=== PATIENT | male | born 1945 | race Caucasian/White ===

== ENCOUNTER 2017-10-05 20:07 | Inpatient (IN) | payer OTHER ==
[~2017-10-05] VITALS: Ht 182.9 cm; Wt 101.6 kg
--- NOTE | 2017-10-05 20:12 | ED GENERAL ADULT ---
History of Present Illness General Chief Complaint: General Adult Stated Complaint: BIBA WEAKNESS Source: patient, EMS Exam Limitations: no limitations Vital Signs & Intake/Output Vital Signs & Intake/Output Vital Signs Date Time Temp Pulse Resp B/P B/P Pulse O2 O2 Flow FiO2 Mean Ox Delivery Rate 10/06 46 98.6 84 18 123/60 98 Nasal 2.0L Cannula 10/05 2229 98.9 90 18 138/84 99 Room Air 10/05 2121 101.5 103 18 130/59 99 Room Air 10/06 2027 97 Nasal 2.0L Cannula 10/05 2014 99.6 118 18 145/66 93 Nasal 2.0L Cannula 10/05 2009 100.5 118 22 88 Room Air ED Intake and Output 10/06 0000 10/05 1200 Intake Total 3000 Output Total 100 Balance 2900 Intake, IV 3000 Output, Urine 100 Patient 214 lb Weight Weight Reported by Patient Measurement Method Allergies Coded Allergies: No Known Allergies (10/05/17) Reconcile Medications Glipizide 5 MG TABLET 1 TAB PO BID Diabetes (Reported) Lisinopril 10 MG TABLET 1 TAB PO DAILY HTN (Reported) Metformin HCl (Glucophage XR) 500 MG TAB.ER.24H DIABETES (Reported) Simvastatin (Simvastatin*) 80 MG TABLET 0.5 TAB PO DAILY HLD (Reported) Triage Nurses Notes Reviewed? yes Onset: Gradual Duration: day(s): Timing: recent history Injury Environment: home Severity: moderate Modifying Factors: Improves With: rest. Associated Symptoms: dysuria HPI: 72-year-old gentleman history of diabetes presents with weakness 1 day. He states that he has spent all day in bed. He has felt warm. He has increased urination with burning, as well as muscle aches. He notes no nausea vomiting diarrhea chest pain shortness of breath cough sinus congestion or ear pain. 911 was called. His glucose in the field was in the mid 200s. His other vitals were stable. He is otherwise well. Past History Travel History Traveled to [place] past 21 day No Medical History Any Pertinent Medical History? see below for history Endocrine: diabetes Surgical History Surgical History: non-contributory Psychosocial History What is your primary language [place] Family History Hx Contributory? No Review of Systems Review of Systems Constitutional: Reports: no symptoms. EENTM: Reports: no symptoms. Respiratory: Reports: no symptoms. Cardiovascular: Reports: no symptoms. GI: Reports: no symptoms. Genitourinary: Reports: no symptoms. Musculoskeletal: Reports: no symptoms. Skin: Reports: no symptoms. Neurological/Psychological: Reports: no symptoms. Hematologic/Endocrine: Reports: no symptoms. Immunologic/Allergic: Reports: no symptoms. All Other Systems: Reviewed and Negative Physical Exam Physical Exam General Appearance: mild distress Comments: Review of Systems - except as otherwise noted in HPI Review of Systems Constitutional:no symptoms. EENTM:no symptoms. Respiratory:no symptoms. Cardiovascular:no symptoms. GI:no symptoms. Genitourinary:no symptoms. Musculoskeletal:no symptoms. Skin:no symptoms. Neurological/Psychological:no symptoms. Hematologic/Endocrine:no symptoms. Immunologic/Allergic:no symptoms. All Other Systems: Reviewed and Negative Physical Exam Physical Exam General Appearance: well developed/nourished, no apparent distress Head: atraumatic, normal appearance Eyes: Bilateral: normal appearance. Ears, Nose, Throat: normal pharynx, normal ENT inspection Neck: normal inspection, supple, full range of motion Respiratory: normal breath sounds, chest non-tender, no respiratory distress, quiet respiration, lungs clear Cardiovascular: regular rate/rhythm Gastrointestinal: normal bowel sounds, soft, non-tender to vigorous palpation, no organomegaly Back: normal inspection, normal range of motion Extremities: normal inspection, normal capillary refill, normal range of motion, no edema Neurologic/Psych: no motor/sensory deficits, awake, alert, oriented x 3 Skin: intact, normal color, warm/dry Core Measures ACS in differential dx? No CVA/TIA Diagnosis: No Sepsis Present: Yes Sepsis Focused Exam Completed? Yes ED Sepsis Exam Date of Focused Sepsis Exam: 10/06/17 Time of Focused Sepsis Exam: 229 Sepsis Cardiac Exam: Tachycardia Sepsis Resp Exam: Ronchi Sepsis Cap Refill Exam: <2 Sec Sepsis Peripheral Pulse Exam: Bounding Sepsis Peripheral Pulse Location: Dorsalis Pedis Sepsis Skin Color Exam: Normal for Ethnicity Skin Temp/Moisture Exam: Warm/Dry Progress Differential Diagnoses I considered the following diagnoses in my evaluation of the patient: UTI dehydration pneumonia versus other Plan of Care: Orders Procedure Date/time Status Nothing by Mouth 10/06 B Active Saline Lock 10/06 38 Active Misc Message 10/06 38 Active ED Holding Orders 10/06 38 Active Admit to inpatient 10/06 38 Active Vital Signs 10/06 38 Active Code Status 10/06 38 Active BLOOD CULTURE 10/05 2304 Active BLOOD CULTURE 10/05 2301 Active CULTURE,URINE 10/05 2012 Active URINALYSIS 10/05 2012 Complete TROPONIN LEVEL 10/05 2012 Complete LIPASE 10/05 2012 Complete HEPATIC FUNCTION PANEL 10/05 2012 Complete CBC WITHOUT DIFFERENTIAL 10/05 2012 Complete BASIC METABOLIC PANEL 10/05 2012 Complete AMYLASE 10/05 2012 Complete EKG 10/05 2012 Active Current Medications Sig/Nora Start time Last Medication Dose Stop Time Status Admin Azithromycin 500 MG ONCE ONE 10/06 0045 UNVr 10/06 (Zithromax) 10/06 0144 0110 Sodium Chloride 250 ML (Normal Saline 0.9%) Laboratory Tests 10/05/172329: Urinalysis HEAVY H, Urine Color YEL, Urine Clarity HAZY H, Urine pH 6.0, Ur Specific [place] >= 1.030, Urine Protein 30 H, Urine Ketones TRACE H, Urine Nitrite NEG, Urine Bilirubin NEG, Urine Urobilinogen 0.2, Ur Leukocyte Esterase NEG, Ur Microscopic SEDIMENT EXAMINED, Urine RBC 3-5, Urine WBC 1-3 H, Ur Epithelial Cells RARE, Urine Bacteria FEW H, Hyaline Casts 1-3 H, Urine Mucus MANY H, Urine Hemoglobin NEG, Urine Glucose 100 H 10/05/172039: Anion Gap 16, Estimated GFR 54 L, BUN/Creatinine Ratio 14.6, Glucose 267 H, Calcium 9.5, Total Bilirubin 0.6, Direct Bilirubin 0.3, AST 88 H, ALT 92 H, Alkaline Phosphatase 58, Troponin I 0.02, Total Protein 8.3 H, Albumin 4.2, Amylase 50, Lipase 205, CBC w Diff NO MAN DIFF REQ, RBC 4.46 L, MCV 94.5 H, MCH 32.1 H, MCHC 34.0, RDW 13.6, MPV 9.1, Gran % 54.7, Lymphocytes % 40.4, Monocytes % 4.5, Eosinophils % 0.1, Basophils % 0.3, Absolute Granulocytes 7.7 H, Absolute Lymphocytes 5.7 H, Absolute Monocytes 0.6, Absolute Eosinophils 0, Absolute Basophils 0 Microbiology 10/05 2329 URINE ROUT: Urine Culture - RECD 10/05 2324 BLOOD: Blood Culture - RECD 10/05 2299 BLOOD: Blood Culture - RECD Diagnostic Imaging: Viewed by Me: Radiology Read. Discussed w/RAD: Radiology Read. CXR Impression: PATIENT: ADOLFO RUBIO PRESENT AGE: 72 PATIENT ACCOUNT NO: [id number] : 45 LOCATION: [facility] ORDERING PHYSICIAN: Maxi Mae MD SERVICE DATE: 10/05/17 EXAM TYPE: RAD - XRY-PORTABLE CHEST XRAY EXAMINATION: XR PORTABLE CHEST CLINICAL INFORMATION: Fever COMPARISON: None TECHNIQUE: Portable frontal view of the chest was obtained. FINDINGS: The cardiac size, mediastinal silhouette and pulmonary vascularity are normal. There is right infrahilar pulmonary opacity, adjacent to the cardiophrenic angle. The bilateral costophrenic angles are are not included in this exam. The left lung is clear. No sizable pleural effusion or pneumothorax. The visualized bones are unremarkable. IMPRESSION: Right infrahilar pulmonary opacity can represent pneumonia. Clinical correlation is advised. Follow-up imaging after completion of treatment of pneumonia is suggested to ensure resolution. DICTATED BY: El Bender MD DATE/TIME DICTATED:10/05/172133 REFRIGERATING TECHNICIAN:MAXIMUS DATE/TIME TRANSCRIBED:2133 CONFIDENTIAL, DO NOT COPY WITHOUT APPROPRIATE AUTHORIZATION. < Electronically signed in Other Vendor System> SIGNED BY: El Bender MD 10/05/172138 Initial ED EKG: sinus no acute changes Departure Departure Disposition: STILL A PATIENT Condition: Stable Clinical Impression Primary Impression: Pneumonia Secondary Impressions: Sepsis, Weakness Referrals: Patient Has No Primary Care Dr (PCP/Family) Departure Forms: Customer Survey General Discharge Information Admission Note Spoke With: Racheal Desai MD Documentation of Exam: Documentation of any treatments & extenuating circumstances including Concerns Regarding Discharge (functional status, medication knowledge or non-compliance, living conditions, etc.) that warrant an admission rather than observation: pt with hypoxia, and weakness, cough, consistent with pneumonia/sepsis, merits iv abx, 02 support. Critical Care Note Critical Care Note Critical Care Time: 30-74 min
[2017-10-05] MEDS ORDERED: GLUCOPHAGE XR500 M1 (20:30)
[2017-10-05 20:59] LABS: ABSOLUTE BASOPHIL COUNT 0 /CUMM (0.0-0.2); ABSOLUTE EOSINOPHIL COUNT 0 /CUMM (0.0-0.7); ABSOLUTE GRANULOCYTE CT 7.7 /CUMM (1.4-6.5); ABSOLUTE LYMPH COUNT 5.7 /CUMM (1.2-3.4); ABSOLUTE MONOCYTE COUNT 0.6 /CUMM (0.10-0.60); BASOPHIL % 0.3 % (0.0-2.0); EOSINOPHIL % 0.1 % (0-5); HEMATOCRIT 42.1 % (42-52); MEAN CORPUSCULAR HGB 32.1 PG (27.0-31.0); MEAN CORPUSCULAR VOLUME 94.5 FL (80.0-94.0); MEAN PLATELET VOLUME 9.1 FL (7.4-10.4); PLATELET COUNT 171 /CUMM (130-400); RBC DISTRIBUTION WIDTH 13.6 % (11.5-14.5); RED BLOOD CELL CT 4.46 /CUMM (4.70-6.10)
[2017-10-05 21:01] LABS: GRANULOCYTE % 54.7 % (42.2-75.2)
--- NOTE | 2017-10-05 21:39 | RADIOLOGY REPORT ---
EXAMINATION: XR PORTABLE CHEST CLINICAL INFORMATION: Fever COMPARISON: None TECHNIQUE: Portable frontal view of the chest was obtained. FINDINGS: The cardiac size, mediastinal silhouette and pulmonary vascularity are normal. There is right infrahilar pulmonary opacity, adjacent to the cardiophrenic angle. The bilateral costophrenic angles are are not included in this exam. The left lung is clear. No sizable pleural effusion or pneumothorax. The visualized bones are unremarkable. IMPRESSION: Right infrahilar pulmonary opacity can represent pneumonia. Clinical correlation is advised. Follow-up imaging after completion of treatment of pneumonia is suggested to ensure resolution.
--- NOTE | 2017-10-06 00:50 | History & Physical ---
Rowena Julien 10/06/17 0050: General Information and HPI MD Statement: I have seen and personally examined ADOLFO RUBIO and documented this H&P. The patient is a 72 year old M who presented with a patient stated chief complaint of [fever]. Source of Information: patient Exam Limitations: no limitations History of Present Illness: Mr. Rubio is a 72yo M w/ PMH of diabetes on metformin/glipizide, HLD on crestor, HTN on lisinopril, presented to ER w/ fever/weakness x 1day. Patient stated that he had spent all day in bed with feeling of warm, also c/o increased urination w/ burning, and muscle aches over body starting this afternoon. Patient endorsed some productive cough and chest congestion for the last two days however no fever/chills/body ache/sick contacts/chest pain/SOB/palpitation until suddenly this afternoon that he was trying to get out of the bed but he was too weak to do so. He denied fall to ground/seizuring activity/LOC, but endorsed onset of fever/chills/body ache ever since then. At baseline patient was ambulating freely at home, lives with his , without recent travel. He was seeing PCP from [place] and did not see any other doctors. He was seen in [place] ER back in 2009 for glucose problems and no hospital/ER visit in between 2009 and now. he has regular visit to PCP at [facility] for management of his diabetes/HLD/HTN. During our clinical interaction, patient denied recent travel/sick contacts, fever/lightheadedness/diaphoresis/night sweat/weight change/cough/SOB/Chest Pain /Palpitation/Abdominal pain/bowel movement or urinary abnormality, or other skin /musculoskeletal/neurological/mood disorders, or dietary/appetite change. -Smoking: quitted for 2 year, 1PPD x 50yr -Alcohol: rare -Rec Drugs: never Allergies/Medications Allergies: Coded Allergies: No Known Allergies (10/05/17) Home Med list Atorvastatin Calcium 20 MG TABLET 20 MG PO 1700 [facility] Doxycycline Hyclate 100 MG CAPSULE 100 MG PO BID tick borne illness Heparin Sod,Porcine/0.9 % NaCl (Heparin 2,500 Unit/250 Ml-Ns) 2,500 UNIT/250 ML (10 UNIT/ML) IV.SOLN 50 ML IV CONTINOUS INFUSION heart health Insulin Aspart (Novolog) 100 UNIT/ML VIAL 0 UNITS SC TIDAC blood sugars 80-150 - 0 151-200 - 0 201-250 - 2 units 251-300 - 3 units 301-350 - 4 units 351-400 - 5 units Metoprolol Tartrate 25 MG TABLET 0.5 TAB PO BID heart health Past History Travel History Traveled to [place] past 21 day No Medical History Neurological: NONE EENT: NONE Cardiovascular: hypertension, hyperlipidemia Respiratory: NONE Gastrointestinal: NONE Hepatic: NONE Renal: NONE Musculoskeletal: NONE Psychiatric: NONE Endocrine: diabetes Blood Disorders: NONE Cancer(s): NONE Surgical History Surgical History: non-contributory Past Family/Social History Psychosocial History Smoking Status: Former Smoker ETOH Use: occasional use Illicit Drug Use: denies illicit drug use Functional Ability ADLs Independent: dressing, eating, toileting, bathing. Ambulation: independent IADLs Independent: shopping, housework, finances, food prep, telephone, transportation , medication admin. Review of Systems Review of Systems Constitutional: Reports: see HPI. Exam & Diagnostic Data Last 24 Hrs of Vital Signs/I&O Vital Signs Date Time Temp Pulse Resp B/P B/P Pulse O2 O2 Flow FiO2 Mean Ox Delivery Rate 10/06 0047 98.6 84 18 123/60 98 Nasal 2.0L Cannula 10/05 2229 98.9 90 18 138/84 99 Room Air 10/05 2121 101.5 103 18 130/59 99 Room Air 10/06 2027 97 Nasal 2.0L Cannula 10/05 2014 99.6 118 18 145/66 93 Nasal 2.0L Cannula 10/05 2009 100.5 118 22 88 Room Air Intake & Output 10/06 0800 10/06 0000 10/05 1600 Intake Total 3000 Output Total 100 Balance 2900 Intake, IV 3000 Output, Urine 100 Patient 97.069 kg Weight Weight Reported by Patient Measurement Method Physical Exam General Appearance Alert, Oriented X3, Cooperative, No Acute Distress Skin No Rashes, No Breakdown, No Significant Lesion Skin Temp/Moisture Exam: Warm/Dry Sepsis Skin Exam (color): Normal for Ethnicity HEENT Atraumatic, PERRLA Neck Supple, No JVD Cardiovascular Regular Rate Lungs Normal Air Movement, decreased air entry bl lung bases Abdomen Normal Bowel Sounds, Soft, No Tenderness Neurological Normal Speech, Strength at 5/5 X4 Ext, Normal Tone, Sensation Intact Extremities No Cyanosis, No Edema, Normal Pulses Last 24 Hrs of Labs/Ronny: Laboratory Tests 10/05/172329: Urinalysis HEAVY H, Urine Color YEL, Urine Clarity HAZY H, Urine pH 6.0, Ur Specific [place] >= 1.030, Urine Protein 30 H, Urine Ketones TRACE H, Urine Nitrite NEG, Urine Bilirubin NEG, Urine Urobilinogen 0.2, Ur Leukocyte Esterase NEG, Ur Microscopic SEDIMENT EXAMINED, Urine RBC 3-5, Urine WBC 1-3 H, Ur Epithelial Cells RARE, Urine Bacteria FEW H, Hyaline Casts 1-3 H, Urine Mucus MANY H, Urine Hemoglobin NEG, Urine Glucose 100 H 10/05/172039: Anion Gap 16, Estimated GFR 54 L, BUN/Creatinine Ratio 14.6, Glucose 267 H, Calcium 9.5, Total Bilirubin 0.6, Direct Bilirubin 0.3, AST 88 H, ALT 92 H, Alkaline Phosphatase 58, Troponin I 0.02, Total Protein 8.3 H, Albumin 4.2, Amylase 50, Lipase 205, CBC w Diff NO MAN DIFF REQ, RBC 4.46 L, MCV 94.5 H, MCH 32.1 H, MCHC 34.0, RDW 13.6, MPV 9.1, Gran % 54.7, Lymphocytes % 40.4, Monocytes % 4.5, Eosinophils % 0.1, Basophils % 0.3, Absolute Granulocytes 7.7 H, Absolute Lymphocytes 5.7 H, Absolute Monocytes 0.6, Absolute Eosinophils 0, Absolute Basophils 0 Microbiology 10/07 251 LOWER RESP: Respiratory Culture - ORD 10/07 251 LOWER RESP: Gram Stain - ORD 10/05 2329 URINE ROUT: Urine Culture - RECD 10/05 2324 BLOOD: Blood Culture - RECD 10/05 2299 BLOOD: Blood Culture - RECD Assessment/Plan Assessment: On admission, Vitals: Tmax 101.5, tachycardia 103, RR 18, BP 130/59, 99% on RA Physical exam -Gen.: AO x3, cooperative, no distress, -HEENT: NCAT, PERRL, EOMI, anicteric sclera, moist mucous membranes -Neck: Supple, no JVD, trachea midline, mild accessory respiratory muscle use -Cardio: Normal S1/S2 without significant murmurs/gallops/rubs -Pulmonary: grossly normal air movement w/ clear auscultation -Abdomen: Soft, nontender, nondistended, bowel sounds intact -Neuro: Awake and alert, cranial nerves II through XII grossly intact -Extremity: Normal pulses/capillary refill, no cyanosis/clubbing/edema -CBC: Leukocytosis 14.0, otherwise unremarkable -BMP: elevated Cr 1.3 (baseline unknown, no nephropathy hx). Glucose 267, elevated LFTs -UA/Microbiology: UCx 2010 cultured arboleda-sensitive S.Aureus -CXR: Right infrahilar pulmonary opacity can represent pneumonia. -EKG: NSR w/o significant ST-T abnormalities. -Interventions in ER: Toradol + IVF x 3, ceftriaxone IV x 1 Problem list/Assessment/Hospital Course: #Community acquired pneumonia #Sepsis (Fever, Tachycardia, source of infection) 2/2 CAP #Transaminitis, unclear etiology, probably reactive #DOUGLAS 2/2 Dehydration #T2 Diabetes - Admit to General medicine, vitals per protocol - Supplemental O2 as needed, TRC/nebulizer as needed - Novolog SS/Accucheck q 6 - Continue other home meds - Start antibiotics Ceftriaxone + azithromycine, and tailor Abx to cultures, taper to PO per clinical course - continuous IVF for DOUGLAS/rehydration, trend Cr - No RUQ symptoms, will trend LFTs and if trending up, may consider RUQ U/S. - If breathing worsening, consider repeat CXR. - Pending blood/urine/sputum culture. DVT prophylaxis Pharm PPX + ALPS Diabetic Diet Full Code As Ranked By This Provider Problem List: 1. Sepsis 2. Weakness 3. Pneumonia Core Measures/Misc (01/25) Acute Coronary Syndrome ACS Diagnosis: No Congestive Heart Failure Congestive Heart Failure Diagnosis No Cerebrovascular Accident CVA/TIA Diagnosis: No VTE (View Protocol) VTE Risk Factors Age>40 No Mechanical VTE Prophylaxis d/t N/A MechProphylax Ordered No VTE Pharm Prophylaxis d/t NA PharmProphylax ordered Sepsis (View protocol) Sepsis Present: Yes If YES complete Sepsis Event Note If YES complete Sepsis Event Note Emiliano Cohen 10/06/17 0238: Core Measures/Misc (01/25) Sepsis (View protocol) If YES complete Sepsis Event Note If YES complete Sepsis Event Note Resident Review Statement Resident Statement: examined this patient, discussed with hr intern, agreed with hr intern Other Findings: Mr Rubio is a 72 yr old man w/ a PMHx of type 2 diabetes, hyperlipidemia who gets most of his care at [facility] came to the hospital with a chief concern of increasing weakness for the last 1 day. The sympotoms started 2-3 days ago when he developed chest congestion, that progressed to non productive cough. He then felt increasingly weak, and was unable to get out of his bed, and apparently spent all day in the bed. He also reported increased frequency of urination, and dysuria. Reported myalgias, but did not have any fever, or chills. No nausea or vomiting or diarrhea reported. No chest pain, dyspnea, palpitations. No recent travel, or sick contacts. At the time of admission-temperature 100.5, pulse rate 118, respiration 22, blood pressure 145/66, 88% on room air improved to 93% on 2 L supplemental oxygen. He continued to be febrile while he was in the ER with MAXIMUM TEMPERATURE of 101.5. General Exam: AAOx3, No acute distress, Skin: No rashes, no breakdown;HEENT: PERRLA, EOMI;Neck: Supple, No JVD; No cervical lymphadenopathy;CVS: Reg Rate, Normal S1,S2, No MGR;Resp: decreased air entry, no ronchi/rales;Abdomen: Soft, No tenderness, Normal Bowel Sounds;Neuro: Normal Speech, Strength 5/5 b/l x 4 extremities, Sensation intact, CN III-XII NL, Reflexes 2+;Extremities: No cyanosis, no pedal edema Pertinent lab findings: WBC 14.0, Hemoglobin 14.3, platelets 171. Sodium 139, potassium 4.5, Cl 98, HCO3 24, AG 16. BUN 19, Cr 1.3, Glu 267. Liver chemistries-AST 88, ALT 92 Chest x-ray- Right infrahilar pulmonary opacity can represent pneumonia. Clinical correlation is advised. Follow-up imaging after completion of treatment of pneumonia is suggested to ensure resolution. EKG revealed NSR, LAD, No STTWI. Urinalysis revealed mild proteinurea, hyaline casts s/o dehydration. Etiology in this case with atypical signs and symptoms of pneumonia w/ leukocytosis and radiological signs of consolidation is likely bacterial pneumonia. Although typical organisms are considered in differentials but given his syptoms atypicals such as mycoplasma, chlamydophila, Legionella are more likely. Mortality is usually higher in elderly patients with coexisting conditions- diabetes. Other differentials considered bronchitis, CHF, COPD. Problem list: 1. Pneumonia- CAP 2. DOUGLAS 3. h/o Type 2 diabetes Plan: # Obtain venous access, and fluid resuscitation as needed given his dehydration. #Supplemental oxygen prn #Inhaled bronchodilators as needed #Follow CBCs with differential, serum chemistry given his DOUGLAS. #Check blood cultures, sputum cultures and Gram stain #Check urine antigen test for strep pneumo and legionella #Trend lactate #Start IV antibiotics-preferably beta lactam-Ceftriaxone+Azithro in his case, and taper as per [facility] cultures. #Check urine lites #Hold oral hypoglycemic drugs, start insulin sliding scale. #Monitor vitals closely. #Acetaminophen for fever. Avoid NSAIDs. Housekeeping checklist: 1. DVT PPx- Heparin Sc 2. GI Ppx-Protonix prn 3. Code status- Full code 4. Diet- CC2 diet 5. Consults- none. 6. Med Rec-done. Lloyd LOBO, [facility] 10/06/17 0341: Core Measures/Misc (01/25) Sepsis (View protocol) If YES complete Sepsis Event Note If YES complete Sepsis Event Note Attending MD Review Statement Attending Statement Attending MD Statement: examined this patient, discuss w/resident/PA/SALES SERVICE ROUTE MANAGER, agreed w/resident/PA/SALES SERVICE ROUTE MANAGER, reviewed images, amended to note Attending Assessment/Plan: 72 yo M ex-smoker (50 pack year, quit 2 yrs ago), with h/o HTN, T2DM, HLD who mainly follows at the [facility], is here for 2-day h/o increasing weakness, fatigue, chest congestion and cough productive of white-yellow phlegm. Denies chest pain, palpitations or dyspnea. No sick contact or recent travel. He reports poor appetite and an episode of nonbloody diarrhea today. Vitals: Tmax 101.5, HR 90-120's, BP 142/62, sats 88% RA --> 97% on 2L. Exam: AAO , ill-appearing male, mucosa dry, skin warm and dry, Chest bilateral reduced air entry, no wheeze or rhonchi, otherwise unremarkable exam. Labs: WBC 14, BUN 19, Creat 1.3 (baseline unknown), glucose 267, AST 88, ALT 92, trop negative. UA hazy, proteinuria, WBC 1-3. CXR: right infrahilar pulmonary opacity can represent pneumonia. EKG: sinus tachycardia, Qtc 454, poor R-wave progression. Assessment and plan: 1. Acute hypoxic respiratory failure 2. Sepsis 3. Right infrahilar community acquired pneumonia 4. DOUGLAS vs CKD (since baseline renal function is unknown) 5. Transaminitis 2/2 sepsis 6. History of T2DM 7. Essential hypertension - Admit to General medicine - Urine legionella and strep Ag - Blood and sputum cultures - TRC nebs scheduled and PRN - IV ceftriaxone and azithro - IV fluids x 2 bags - Check lactic acid - Trend renal and liver functions after adequate hydration - Resume lisinopril once renal functions improve - Hold glipizide and metformin - Check HbA1c, add novolog SS - Resume statin once transaminitis resolves or trends down DVT ppx Hep SC. Full code.
[2017-10-06] MEDS ORDERED: LISINOPRIL10 M1 PO (01:17)
[2017-10-06] MEDS ORDERED: SIMVASTATIN80 M1 PO (01:18)
[2017-10-06] MEDS ORDERED: GLIPIZIDE5 M2 PO (01:19)
[2017-10-06 02:42] VITALS: BP 142/62
--- NOTE | 2017-10-06 03:42 | Admission Certification ---
Admission Certification Certification Statement - As attending physician, I certify that at the time of - admission, based on clinical presentation, severity of - symptoms, need for further diagnostic testing and - therapeutic interventions, and risk of adverse outcomes - without in-hospital treatment, in my clinical assessment, - this patient requires an acute hospital stay for a minimum - of two nights or longer. I have also considered psychsocial - factors such as support system, advanced age, financial - issues, cognitive issues, and failed out-patient treatments, - past re-admission history, safety of patient, and lack of - compliance as applicable. Specific rationale supporting this admission is: Acute hypoxic respiratory failure, sepsis, right sided community acquired pneumonia.
[2017-10-06 05:38] VITALS: BP 128/62
--- NOTE | 2017-10-06 07:40 | RADIOLOGY REPORT ---
EXAMINATION: XR PORTABLE CHEST CLINICAL INFORMATION: Pneumonia. Tachycardia and fever. COMPARISON: Chest radiograph dated October 05, 2017 at 9:05 PM. TECHNIQUE: Portable frontal view of the chest was obtained. FINDINGS: The cardiomediastinal silhouette is unchanged in size and configuration. There is calcification of the aortic knob. There is no lobar consolidation. There is interstitial prominence, similar to the prior study. No pneumothorax. Degenerative changes of the shoulders. IMPRESSION: No definite lobar consolidation. The previously described right infrahilar pulmonary opacity is less conspicuous on the current study.
[2017-10-06 07:52] LABS: ABSOLUTE BASOPHIL COUNT 0 /CUMM (0.0-0.2); ABSOLUTE EOSINOPHIL COUNT 0 /CUMM (0.0-0.7); ABSOLUTE GRANULOCYTE CT 6.4 /CUMM (1.4-6.5); ABSOLUTE LYMPH COUNT 4.8 /CUMM (1.2-3.4); ABSOLUTE MONOCYTE COUNT 0.4 /CUMM (0.10-0.60); BASOPHIL % 0.1 % (0.0-2.0); EOSINOPHIL % 0 % (0-5); GRANULOCYTE % 55.4 % (42.2-75.2); HEMATOCRIT 38.7 % (42-52); MEAN CORPUSCULAR HGB 32.4 PG (27.0-31.0); MEAN CORPUSCULAR HGB CONC 33.9 G/DL (33.0-37.0); MEAN CORPUSCULAR VOLUME 95.5 FL (80.0-94.0); PLATELET COUNT 136 /CUMM (130-400); RBC DISTRIBUTION WIDTH 13.6 % (11.5-14.5); RED BLOOD CELL CT 4.05 /CUMM (4.70-6.10); WHITE BLOOD CELL COUNT 11.6 /CUMM (4.8-10.8)
--- NOTE | 2017-10-06 08:04 | Event Note ---
Event Note Event Note: Situation: * Called to evaluate a patient with tachycardia/tachypnea Background: * Patient was admitted yesterday evening with suspected sepsis secondary to community acquired pneumonia Assessment * Patient does indeed c/o dyspnea, denies chest pain or palpitations. Denies other acute changes in symptoms aside from his breathing. * Focused PE: sat 94 on 2L, BP 110/58, HR 138. Patient is quite dyspneic and tachypneic, using accessory muscles of resp. Significantly diminshed air entry diffusely with minimal wheezing. Cardiac exam = tachycardia with no appreciated murmurs. JVP to 3cm above sternal angle at 45 degrees. No LE edema. * EKG shows sinus tachycardia with rate in the 140s with prolonged QRS ( incomplete LBBB pattern). Recommendations: * Most likely his dyspnea/tachypnea and EKG changes are rate related and secondary to sepsis. Given his history of smoking, he could also have underlying COPD, but an exacerbation wouldnt be expected to be so sudden. Given the sudden clinical change, other causes such as ACS, and PE must be considered. We will: 1. Increase O2 supplementation 2. Portable CXR already ordered prior to assessment. 3. CTA to r/o PE 4. Trop to evaluate for ischemia given his incomplete LBBB and transfer to telemetry for continuous tele monitoring. 5. If trop is elevated, please consider echo to evaluate EF and wall motion.
--- NOTE | 2017-10-06 08:35 | Cons- Cardiology ---
General Information and HPI Consulting Request Date of Consult: 10/06/17 Requested By: Lloyd LOBO,Racheal History of Present Illness: Mr. Lane is a 72 year old male with history of diabetes, hypertension and dyslipidemia. He presented to the ER for evaluation of weakness and a fever that was noted for one day prior to admission. He does admit to urinary frequency with burning and generalized muscle achiness. He also has a congested cough. The patient denies chest discomfort but he does have a mildly increased cardiac troponin in the setting of mild renal insufficiency. He was also found to have an increased WBC count. He does admit to shortness of breath without orthopnea. No lightheadedness or palpitations. His ECG shows sinus tachycardia with incomplete LBBB. Allergies/Medications Allergies: Coded Allergies: No Known Allergies (10/05/17) Home Med List: Glipizide 5 MG TABLET 1 TAB PO BID Diabetes (Reported) Lisinopril 10 MG TABLET 1 TAB PO DAILY HTN (Reported) Metformin HCl (Glucophage XR) 500 MG TAB.ER.24H DIABETES (Reported) Simvastatin (Simvastatin*) 80 MG TABLET 0.5 TAB PO DAILY HLD (Reported) Review of Systems Review of Systems: A review of systems is unremarkable. 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 Home Services at Home: None Smoking Status: Former Smoker ETOH Use: occasional use Illicit Drug Use: denies illicit drug use Functional Ability ADLs Independent: dressing, eating, toileting, bathing. Ambulation: independent IADLs Independent: shopping, housework, finances, food prep, telephone, transportation , medication admin. Exam & Diagnostic Data Vital Signs and I&O Vital Signs Date Time Temp Pulse Resp B/P B/P Pulse O2 O2 Flow FiO2 Mean Ox Delivery Rate 10/06 0705 100.8 10/06 0701 100.8 10/06 0630 145 26 96 Nasal 2.0L Cannula 10/06 0609 101.1 10/06 0538 101.1 120 24 128/62 95 Nasal 2.0L Cannula 10/06 0245 97 Nasal 2.0L Cannula 10/06 0242 98.2 98 20 142/62 97 Nasal 2.0L Cannula 10/06 0217 98.5 86 18 127/60 98 Nasal 2.0L Cannula 10/06 0047 98.6 84 18 123/60 98 Nasal 2.0L Cannula 10/05 2230 98.9 90 18 138/84 99 Room Air 10/05 2121 101.5 103 18 130/59 99 Room Air 10/06 2027 97 Nasal 2.0L Cannula 10/05 2014 99.6 118 18 145/66 93 Nasal 2.0L Cannula 10/05 2009 100.5 118 22 88 Room Air Intake & Output 10/06 1600 10/06 0800 10/06 0000 10/05 1600 10/05 0810/05 0000 Intake Total 955 3000 Output Total 350 100 Balance 605 2900 Intake, IV 475 3000 Intake, Oral 480 Number 0 Bowel Movements Output, Urine 350 100 Patient 224 lb 214 lb Weight Weight Bed scale Reported by Patient Measurement Method Physical Exam: General: WD/WN male in NAD; alert and oriented x 3 HEENT: NC/AT, PERRL, EOMI Neck: no JVD, no carotid bruit Heart: Tachycardic and regular without murmur Lungs: no crackles or wheezing ABdomen: soft, distended, NT, +ve bowel sounds Extremities: no edema Assessment/Plan Assessment/Plan * This patient has symptoms of impending sepsis associated with tachycardia. In the setting of this increased myocardial demand the patient is ruling in for a type 2 RI. He does have multiple risk factors for coronary artery disease but, being a diabetic, does not have any chest discomfort. He will need an eventual cardiac catheterization when more stable. It should be noted that the patient does have shortness of breath and an elevated D-dimer but his SOB can be attributed to his emphysema and a CTA did not show any pulmonary emboli. It is noted that the CT was somewhat suboptimal. * Obtain an echocardiogram. * Follow cardiac enzymes until they peak. * Administer supplemental oxygen at 2L by NC. Continue Lipitor and begin Metoprolol 12.5mg BID. Begin aspirin 325mg daily. * Agree with antibiotic therapy. Consult Acknowledgment - Thank you for your consult request.
[2017-10-06 08:49] VITALS: BP 112/70
--- NOTE | 2017-10-06 10:28 | CT SCAN REPORT ---
EXAMINATION: CT ANGIOGRAM OF THE CHEST WITH AND WITHOUT CONTRAST (CT PULMONARY ANGIOGRAM FOR PE) CLINICAL INFORMATION: Shortness of breath COMPARISON: Chest x-ray from earlier today TECHNIQUE: Prior to contrast administration, noncontrast localization images were obtained. Subsequently, multidetector volumetric imaging was performed from the thoracic inlet to below the diaphragms following the administration of 95 mL Optiray 320 intravenous contrast. No contrast reaction reported. Sagittal, coronal, and MIP oblique sagittal reformatted images were obtained on the CT workstation, uploaded to PACS, and reviewed. Total exam dose-length product 555.16 mGy-cm. FINDINGS: QUALITY OF STUDY/CONTRAST BOLUS: Satisfactory PULMONARY ARTERIES: There is respiratory motion artifact which significantly limits assessment of the subsegmental vessels towards the lung bases. Otherwise, no central or segmental pulmonary embolus is seen. THORACIC AORTA: No aneurysm or dissection. There is atherosclerotic calcification along the aorta. LUNG: There is extensive emphysema, most severe in the upper lobes. Bronchial wall thickening is also noted, which may represent acute or chronic bronchitis. There is mild bibasilar atelectasis. No additional consolidation is seen. There is a right upper lobe nodule measuring 4 mm on image 108/543. PLEURA: There are trace bilateral pleural effusions. No pneumothorax. MEDIASTINUM: The visualized thyroid gland is unremarkable. There are scattered mediastinal lymph nodes without significant enlargement by size criteria. Cardiac size is within normal limits; no pericardial effusion. Coronary artery calcifications are present. No evidence of septal bowing or right heart strain. CHEST WALL/AXILLA: No axillary or internal mammary lymphadenopathy. OSSEOUS STRUCTURES: Diffuse idiopathic skeletal hyperostosis is noted in the spine. UPPER ABDOMEN: A calcification in the posterior right hepatic lobe is suggestive of a granuloma. No reflux of contrast into the hepatic veins to suggest elevated right heart pressures. IMPRESSION: 1. No pulmonary embolus identified. Assessment of the distal vasculature in the lung bases is incomplete due to respiratory motion artifact. 2. Extensive emphysema. Bronchial wall thickening may represent acute or chronic bronchitis. 3. Right upper lobe 4 mm lung nodule, nonspecific. Given the presence of emphysema, follow-up CT in 12 months is recommended. 4. Trace pleural effusions. VTE: negative
--- NOTE | 2017-10-06 12:21 | PN- Att Addend ---
See Addendum Attending Addendum Attending Brief Note 72-year-old male past medical history of diabetes, hypertension and hyperlipidemia was admitted last night with sepsis. He was febrile, had a white count with a left shift, lactic acidosis, mild transaminitis and complains of cough with sputum with a question in opacity on chest x-ray. Over the last few hours he has remained persistently tachycardic, tachypnea and febrile and has now developed a troponin elevation which we believe is a type II MS secondary to the sepsis. We sent him down for chest CT which is not impressive in terms of a focality of infection in his lungs. We'll reevaluate his abdomen and other sources and if unrevealing will get ID involved. Right now we empirically have him on IV antibiotics to cover for pneumonia with fluids and cardiology eval is pending.
[2017-10-06 14:22] VITALS: BP 118/64
[2017-10-06 16:00] VITALS: BP 116/81
--- NOTE | 2017-10-06 17:10 | Cons- Infect Disease ---
General Information and HPI Consulting Request Date of Consult: 10/06/17 Requested By: Lloyd LOBO,Racheal Reason for Consult: Unexplained fever Source of Information: patient History of Present Illness: This is a 72-year-old man with a history of hypertension and diabetes, status post a tick bite 2 weeks prior to admission, admitted on October 05 after presenting to the emergency room with the acute onset of weakness, diaphoresis and lethargy , with no chest pain, cough, shortness of breath, fevers or chills. On admission he was febrile to 101.5. Laboratory data revealed a white blood cell count of 14,000, BUN/creatinine 19 and 1.3, AST ALT 88 and 92, troponin 0.02, d- dimer 1644. Urinalysis 3-5 RBC/1-3 WBCs. Chest x-ray revealed a right infrahilar opacity. He was begun on Ceftriaxone and Azithromycin and admitted to the floor. This morning he was noted to be tachypneic and tachycardic with a complaint of dyspnea. A repeat troponin was elevated to 0.81 and he was moved to Telemetry and, with his troponin further elevated to 46.8 this afternoon, to the ICU. A CTA was negative for pulmonary embolism with no evidence of consolidation but did reveal extensive emphysema. He has remained febrile overnight but does feel somewhat improved after an inhaler and nasal oxygen. Allergies/Medications Allergies: Coded Allergies: No Known Allergies (10/05/17) Home Med List: Glipizide 5 MG TABLET 1 TAB PO BID Diabetes (Reported) Lisinopril 10 MG TABLET 1 TAB PO DAILY HTN (Reported) Metformin HCl (Glucophage XR) 500 MG TAB.ER.24H DIABETES (Reported) Simvastatin (Simvastatin*) 80 MG TABLET 0.5 TAB PO DAILY HLD (Reported) Past History Travel History Traveled to [place] past 21 day No Medical History Blood Transfusion Hx: No Neurological: NONE EENT: NONE Cardiovascular: hypertension, hyperlipidemia Respiratory: NONE Gastrointestinal: NONE Hepatic: NONE Renal: NONE Musculoskeletal: NONE Psychiatric: NONE Endocrine: diabetes Blood Disorders: NONE 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 Home Services at Home: None Smoking Status: Former Smoker ETOH Use: occasional use Illicit Drug Use: denies illicit drug use Functional Ability ADLs Independent: dressing, eating, toileting, bathing. Ambulation: independent IADLs Independent: shopping, housework, finances, food prep, telephone, transportation , medication admin. Review of Systems Review of Systems All Other Systems: Reviewed and Negative Exam & Diagnostic Data Last 24 Hrs of Vital Signs/I&O Vital Signs Date Time Temp Pulse Resp B/P B/P Pulse O2 O2 Flow FiO2 Mean Ox Delivery Rate 10/06 1600 96 Nasal 2.0L Cannula 10/06 1600 98.0 103 20 116/81 96 Nasal 2.0L Cannula 10/06 1422 98.0 103 20 118/64 100 Nasal Cannula 10/06 0950 95 Nasal 2.0L Cannula 10/06 0924 94 Nasal 2.0L Cannula 10/06 0909 Nasal 2.0L Cannula 10/06 0849 99.6 128 24 112/70 93 10/06 0705 100.8 10/06 0701 100.8 10/06 0630 145 26 96 Nasal 2.0L Cannula 10/06 0609 101.1 10/06 0538 101.1 120 24 128/62 95 Nasal 2.0L Cannula 10/06 0245 97 Nasal 2.0L Cannula 10/06 0242 98.2 98 20 142/62 97 Nasal 2.0L Cannula 10/06 0217 98.5 86 18 127/60 98 Nasal 2.0L Cannula 10/06 0047 98.6 84 18 123/60 98 Nasal 2.0L Cannula 10/05 2230 98.9 90 18 138/84 99 Room Air 10/05 2121 101.5 103 18 130/59 99 Room Air 10/06 2027 97 Nasal 2.0L Cannula 10/05 2014 99.6 118 18 145/66 93 Nasal 2.0L Cannula 10/05 2009 100.5 118 22 88 Room Air Intake & Output 10/06 1600 10/06 0800 10/06 0000 Intake Total 042 482 5690 Output Total 350 100 Balance 930 573 0920 Intake, IV 475 3000 Intake, Oral 300 480 Number 0 Bowel Movements Output, Urine 350 100 Patient 224 lb 214 lb Weight Weight Bed scale Reported by Patient Measurement Method Physical Exam Other Physical Findings: He is awake and alert in no acute distress. T-max 101.5. Skin reveals no rash or lesions. HEENT exam missing teeth. Neck is supple with no adenopathy. Lungs are clear. Heart regular rhythm with no murmur. Abdomen is soft, nontender with positive bowel sounds. Back no CVA tenderness. Extremities no cyanosis, clubbing or edema. Neuro is without focality. Last 24 Hours of Lab Results: Laboratory Tests 10/06 10/06 10/06 10/06 1630 1630 1245 1245 Chemistry Lactic Acid (0.7 - 2.1 mmol/L) Pending 3.3 H Troponin I (<0.11 ng/ml) Pending 46.80 *H 10/06 10/06 10/06 0940 0655 0655 Chemistry Sodium (137 - 145 mmol/L) 140 Potassium (3.5 - 5.1 mmol/L) 4.7 Chloride (98 - 107 mmol/L) 104 Carbon Dioxide (22 - 30 mmol/L) 19 L Anion Gap (5 - 16) 17 H BUN (9 - 20 mg/dL) 21 H Creatinine (0.7 - 1.2 mg/dL) 1.4 H Estimated GFR (>60 ml/min) 50 L BUN/Creatinine Ratio (7 - 25 %) 15.0 Lactic Acid (0.7 - 2.1 mmol/L) 2.5 H 3.4 H Total Bilirubin (0.2 - 1.3 mg/dL) 0.5 Direct Bilirubin (< 0.4 mg/dL) 0.3 AST (17 - 59 U/L) 96 H ALT (21 - 72 U/L) 94 H Alkaline Phosphatase (< 127 U/L) 48 Troponin I (<0.11 ng/ml) 0.81 *H Total Protein (6.3 - 8.2 g/dL) 7.2 Albumin (3.5 - 5.0 g/dL) 3.4 L TSH (0.270 - 4.200 uIU/mL) 2.500 Coagulation D-Dimer High Sensitivty (0 - 243 ng/ml) 1644 H Hematology CBC w Diff MAN DIFF ORDERED WBC (4.8 - 10.8 /CUMM) 11.6 H RBC (4.70 - 6.10 /CUMM) 4.05 L Hgb (14.0 - 18.0 G/DL) 13.1 L Hct (42 - 52 %) 38.7 L MCV (80.0 - 94.0 FL) 95.5 H MCH (27.0 - 31.0 PG) 32.4 H MCHC (33.0 - 37.0 G/DL) 33.9 RDW (11.5 - 14.5 %) 13.6 Plt Count (130 - 400 /CUMM) 136 MPV (7.4 - 10.4 FL) 9.0 Gran % (42.2 - 75.2 %) 55.4 Lymphocytes % (20.5 - 51.1 %) 41.2 Monocytes % (1.7 - 9.3 %) 3.3 Eosinophils % (0 - 5 %) 0 Basophils % (0.0 - 2.0 %) 0.1 Absolute Granulocytes (1.4 - 6.5 /CUMM) 6.4 Segmented Neutrophils (42.2 - 75.2 %) 44 Band Neutrophils (0.0 - 5.0 %) 11 H Absolute Lymphocytes (1.2 - 3.4 /CUMM) 4.8 H Lymphocytes (20.5 - 51.1 %) 39 Monocytes (1.7 - 9.3 %) 6 Absolute Monocytes (0.10 - 0.60 /CUMM) 0.4 Absolute Eosinophils (0.0 - 0.7 /CUMM) 0 Absolute Basophils (0.0 - 0.2 /CUMM) 0 Platelet Estimate (ADEQUATE) VERIFIED BY SMEAR Normocytic RBCs VERIFIED Normochromic RBCs VERIFIED 10/05 10/05 2330 2330 Urines Urinalysis HEAVY H Urine Color (YEL,AMB,STR) YEL Urine Clarity (CLEAR) HAZY H Urine pH (5.0 - 8.0) 6.0 Ur Specific [place] (1.001 - 1.035) >= 1.030 Urine Protein (NEG,<30 MG/DL) 30 H Urine Ketones (NEG) TRACE H Urine Nitrite (NEG) NEG Urine Bilirubin (NEG) NEG Urine Urobilinogen (0.1 - 1.0 EU/dl) 0.2 Ur Leukocyte Esterase (NEG) NEG Ur Microscopic SEDIMENT EXAMINED Urine RBC (0 - 5 /HPF) 3-5 Urine WBC (0 - 2 /HPF) 1-3 H Ur Epithelial Cells (NONE,FEW) RARE Urine Bacteria (NEG/NONE) FEW H Hyaline Casts (0/LPF) 1-3 H Urine Mucus (FEW,NONE) MANY H Urine Hemoglobin (NEG) NEG Ur Random Creatinine (mg/dL) 331.4 Ur Random Sodium (30 - 90 mmol/L) 51 Ur Random Potassium (mmol/L) 111.9 Fraction Sodium Excret (<1% %) 0.1 Urine Glucose (N MG/DL) 100 H 10/06 2039 Chemistry Sodium (137 - 145 mmol/L) 139 Potassium (3.5 - 5.1 mmol/L) 4.5 Chloride (98 - 107 mmol/L) 98 Carbon Dioxide (22 - 30 mmol/L) 24 Anion Gap (5 - 16) 16 BUN (9 - 20 mg/dL) 19 Creatinine (0.7 - 1.2 mg/dL) 1.3 H Estimated GFR (>60 ml/min) 54 L BUN/Creatinine Ratio (7 - 25 %) 14.6 Glucose (65 - 99 mg/dL) 267 H Calcium (8.4 - 10.2 mg/dL) 9.5 Total Bilirubin (0.2 - 1.3 mg/dL) 0.6 Direct Bilirubin (< 0.4 mg/dL) 0.3 AST (17 - 59 U/L) 88 H ALT (21 - 72 U/L) 92 H Alkaline Phosphatase (< 127 U/L) 58 Troponin I (<0.11 ng/ml) 0.02 Total Protein (6.3 - 8.2 g/dL) 8.3 H Albumin (3.5 - 5.0 g/dL) 4.2 Amylase (30 - 110 U/L) 50 Lipase (23 - 300 U/L) 205 Hematology CBC w Diff NO MAN DIFF REQ WBC (4.8 - 10.8 /CUMM) 14.0 H RBC (4.70 - 6.10 /CUMM) 4.46 L Hgb (14.0 - 18.0 G/DL) 14.3 Hct (42 - 52 %) 42.1 MCV (80.0 - 94.0 FL) 94.5 H MCH (27.0 - 31.0 PG) 32.1 H MCHC (33.0 - 37.0 G/DL) 34.0 RDW (11.5 - 14.5 %) 13.6 Plt Count (130 - 400 /CUMM) 171 MPV (7.4 - 10.4 FL) 9.1 Gran % (42.2 - 75.2 %) 54.7 Lymphocytes % (20.5 - 51.1 %) 40.4 Monocytes % (1.7 - 9.3 %) 4.5 Eosinophils % (0 - 5 %) 0.1 Basophils % (0.0 - 2.0 %) 0.3 Absolute Granulocytes (1.4 - 6.5 /CUMM) 7.7 H Absolute Lymphocytes (1.2 - 3.4 /CUMM) 5.7 H Absolute Monocytes (0.10 - 0.60 /CUMM) 0.6 Absolute Eosinophils (0.0 - 0.7 /CUMM) 0 Absolute Basophils (0.0 - 0.2 /CUMM) 0 Last 24 Hours of Ronny Results: Blood cultures x2 October 05 negative Urine culture October 05 pending Urine strep pneumo antigen and Legionella antigen September 27 negative Diagnostic Data Recent Imaging Findings: CTA of the chest October 06 no pulmonary embolism; extensive emphysema, with mild bibasilar atelectasis; no consolidation Assessment/Plan Assessment/Plan Impression: This is a 72-year-old man, status post a tick bite 2 weeks prior to admission, admitted on October 05 with the acute onset of weakness, diaphoresis and lethargy, found to be febrile with a leukocytosis, treated empirically for pneumonia, with an elevated troponin noted today. He has no obvious focus of infection but, given the history of a tick bite and the nonspecific symptoms of weakness and lethargy, with a decreasing platelet count, suspect that this may be a tickborne infection, most likely secondary to Anaplasma. Co-infection with Lyme disease is possible and occurs in 20% of the cases. Other tickborne infections carried by the same tick include Babesiosis, which would require different treatment, Borrelia miyamotoi, which is also treated with Doxycycline, and [place] virus, which requires no treatment. The elevated troponin is felt by Cardiology to represent a type II [place]. Suggestion: 1. Would ask the lab to review the peripheral smear to rule out intracytoplasmic morulae 2. Send serum for PCR for Anaplasma 3. Discontinue Ceftriaxone and Azithromycin 4. Begin Doxycycline 100 mg p.o. every 12 hours pending above Consult Acknowledgment - Thank you for your consult request.
--- NOTE | 2017-10-06 19:51 | Discharge Summary ---
Visit Information Visit Dates Admission Date: 10/06/17 Discharge Date: 10/06/17 Hospital Course Course Attending Physician: Racheal Desai MD Primary Care Physician: Patient Has No Primary Care Dr Consulting Request: Consulting Specialty: Cardiology Consulting Physician: Reason for Consult: elevated troponin Hospital Course: Mr. Lane is a 72yo M w/ PMH of diabetes on metformin/glipizide, HLD on crestor, HTN on lisinopril, presented to ER w/ fever/weakness x 1day. Patient stated that he had spent all day in bed with feeling of warm, also c/o increased urination w/ burning, and muscle aches over body starting this afternoon. Patient endorsed some productive cough and chest congestion for the last two days however no fever/chills/body ache/sick contacts/chest pain/SOB/palpitation until suddenly this afternoon that he was trying to get out of the bed but he was too weak to do so. He denied fall to ground/seizuring activity/LOC, but endorsed onset of fever/chills/body ache ever since then. VS at admission: Febrile to 101.5, HR 118, BP 145/66mmHg, on 2L NC. Laboratory data revealed a white blood cell count of 14,000, BUN/creatinine 19 and 1.3, AST ALT 88 and 92, troponin 0.02, d-dimer 1644. Urinalysis 3-5 RBC/1-3 WBCs. Chest x-ray revealed a right infrahilar opacity. On 10/06/17 morning he was noted to be tachypneic and tachycardic with a complaint of dyspnea. A repeat troponin was elevated to 0.81, subsequently moved to Telemetry (admitted to [facility] initially) and, with his troponin further elevated to 46.8 this afternoon, to the ICU. A CTA was negative for pulmonary embolism with no evidence of consolidation but did reveal extensive emphysema. Transferred to ICU once Troponin elevated from 0.02 --> 0.81 --> 46.8 --> 109. EKG didnot show any acute ischemic changes initially. EKG shows NSR with ST T wave chages in the anterior leads. Plan Elevated troponin with possible viral myocarditis vs Acute coronary syndrome Patient had history of diabetes, hypertension, hyperlipidemia on medical management. He had multiple risk factors, completely asymptomatic without any chest discomfort. Since admission patient remained tachypneic and tachycardic and subsequently his troponin was elevated. As troponins persistently elevated with subsequent EKG changes and CTA ruled out PE, it was considered that acute coronary syndrome or possible myocarditis is being reason for his symptoms. No eosinophilia. There is no obvious clear source of infection at this point. Stat echo was ordered (not done). Patient was given 325 mg of aspirin and begun on atorvastatin 20mg, metoprolol 12.5 twice a day, IV heparin. CRP, TIFFANY, ESR, tick panel requested. His oxygen requirement remained stable since admission at 2 L. A decision was made to transfer the patient to obtain stat catheterization. Possible tickborne illness Patient had a history of bite 2 weeks ago and had symptoms of weakness and lethargy along with thrombocytopenia. Although he was started initially on IV ceftriaxone, azithromycin for concerns of pneumonia, fever discontinued and started on doxycycline 100 mg by mouth every 12 hours. PCR for Anaplasma was sent out. A peripheral smear was requested for intracytoplasmic morules. Tick panel requested. Mild Lactic acidosis Perisistent lactic acidosis despite aggressive hydration, so far received 2L of NS. currently on NS @ 125ml/hr. AG 17. DM On oral hypoglycemics. Started on ISS. DVT prophylaxis IV Heparin code status full code Complications: Persistent troponin leak with EKG changes Allergies: Coded Allergies: No Known Allergies (10/05/17) Significant Procedures: CXR on 10/05/17 IMPRESSION: Right infrahilar pulmonary opacity can represent pneumonia. Clinical correlation is advised. Follow-up imaging after completion of treatment of pneumonia is suggested to ensure resolution. CT angio IMPRESSION: 1. No pulmonary embolus identified. Assessment of the distal vasculature in the lung bases is incomplete due to respiratory motion artifact. 2. Extensive emphysema. Bronchial wall thickening may represent acute or chronic bronchitis. 3. Right upper lobe 4 mm lung nodule, nonspecific. Given the presence of emphysema, follow-up CT in 12 months is recommended. 4. Trace pleural effusions. VTE: negative Pertinent Lab Results: as above Disposition Summary Disposition Principal Diagnosis: Acute [place] Additional Diagnosis: Sepsis secondary to probable tickborne illness DM Lactic acidosis Discharge Disposition: other general hospital Discharge Instructions General Discharge Information Code Status: Full Code Patient's Diet: Heart healthy diet Patient's Activity: as tolerated Follow-Up Instructions/Appts: Please follow up with your PCP in a week Please follow up with your an/ssn 2 4 operator in a week Medications at Discharge Discharge Medications: Stop taking the following medications: Metformin HCl (Glucophage XR) 500 MG TAB.ER.24H Lisinopril (Lisinopril) 10 MG TABLET ORAL DAILY Simvastatin (Simvastatin*) 80 MG TABLET ORAL DAILY Glipizide (Glipizide) 5 MG TABLET ORAL TWICE DAILY Start taking the following new medications: Doxycycline Hyclate (Doxycycline Hyclate) 100 MG CAPSULE 100 Milligram ORAL TWICE DAILY Qty = 14 No Refills Atorvastatin Calcium (Atorvastatin Calcium) 20 MG TABLET 20 Milligram ORAL 5 PM Qty = 30 No Refills Metoprolol Tartrate (Metoprolol Tartrate) 25 MG TABLET 12.5 Milligram ORAL TWICE DAILY Qty = 30 No Refills Heparin Sod,Porcine/0.9 % NaCl (Heparin 2,500 Unit/250 Ml-Ns) 2,500 UNIT/250 ML (10 UNIT/ML) IV.SOLN 50 Milliliters INTRAVEN CONTINUOUS INFUSION Qty = 1 No Refills Copies To: Ghassan LOBO PHD,Shad Ramsey Attending MD Review Statement Documenting Attending: Ghassan LOBO PHD,Shad Ramsey
[2017-10-06 21:12] VITALS: BP 114/63
--- NOTE | 2017-10-06 21:17 | PN- Att Addend ---
Attending Addendum Attending Brief Note ICU note Seen and examined independently Full note per resident Pt with sig smoking history (stopped 2 yrs ago), DM, Recent tick bite, recent weakness, mild occ dry cough, with dyspnea and fatigue Since admission has mild low grade temp No sputum, no dysuria No rash Mild tachy with tachypnea CTA nil sig no pna ID eval - prob tick borne illness on doxy LABS Sig elevated troponin EKG progressive conduction abnormality (no chest pain) with st t changes in the precordial and lateral leads No eosinophila, Mild increase in lactate Mild elevate creat Mild elevated lactate He is awake and alert in no acute distress. T-max 101.5. Skin reveals no rash or lesions. HEENT exam missing teeth. Neck is supple with no adenopathy. Lungs are clear. Heart regular rhythm with no murmur. Abdomen is soft, nontender with positive bowel sounds. Back no CVA tenderness. Extremities no cyanosis, clubbing or edema. Neuro is without focality. IMPRESSION Pt with previous smoking history DM, HTN, HLD with recent tick bite with asthnia , fatigue with low grade temp with mild leukocytosis with mild reducing plt ISSUES * Sig elevated trop with ekg changes with no chest pain - highly sugg of myocarditis vs ACS * Low grade temp with fatigue with leukocytosis, with mild reducing platelets with recent tick bite -rule out tick borne dz with myocarditis * Worsening conduction abnormality with ekg changes * Mild dyspnea with ct sugg of severe emphysema with mild wheezing with no copde * DM, HLD, HTN now bp trending low * Appears euvolemic * Small lung nodule needs ct in 6 months REC DC ivf after this bag and hold further ivf Keep hob up Check Angiotensin converting enzyme, ESR, TIFFANY, CRP, tick borne panel, LYme titer please Cont to follow all labs Cont doxy ECHO Cardio aware Cont heparin for now Cont to monitor ekg Ipratropium nebs q8 avoid albuterol Sputum culture Low dose betablocker Pt is critically ill TTS 40 mins Cardio aware
--- NOTE | 2017-10-06 21:44 | Acceptance Note - Resident/Int ---
Subjective Background: Mr. Lane is a 72yo M w/ PMH of diabetes on metformin/glipizide, HLD on crestor, HTN on lisinopril, presented to ER w/ fever/weakness x 1day. Patient stated that he had spent all day in bed with feeling of warm, also c/o increased urination w/ burning, and muscle aches over body starting this afternoon. Patient endorsed some productive cough and chest congestion for the last two days however no fever/chills/body ache/sick contacts/chest pain/SOB/palpitation until suddenly this afternoon that he was trying to get out of the bed but he was too weak to do so. He denied fall to ground/seizuring activity/LOC, but endorsed onset of fever/chills/body ache ever since then. VS at admission: Febrile to 101.5, HR 118, BP 145/66mmHg, on 2L NC. Laboratory data revealed a white blood cell count of 14,000, BUN/creatinine 19 and 1.3, AST ALT 88 and 92, troponin 0.02, d-dimer 1644. Urinalysis 3-5 RBC/1-3 WBCs. Chest x-ray revealed a right infrahilar opacity. On 10/06/17 morning he was noted to be tachypneic and tachycardic with a complaint of dyspnea. A repeat troponin was elevated to 0.81, subsequently moved to Telemetry (admitted to [facility] initially) and, with his troponin further elevated to 46.8 this afternoon, to the ICU. A CTA was negative for pulmonary embolism with no evidence of consolidation but did reveal extensive emphysema. Living Situation: home self care Review of Systems Constitutional: Reports: see HPI. Cardiovascular: Reports: see HPI. Denies: chest pain. Respiratory: Reports: cough, short of breath. Gastrointestinal: Reports: see HPI. Objective Last 24 Hrs of Vital Signs/I&O Vital Signs Date Time Temp Pulse Resp B/P B/P Pulse O2 O2 Flow FiO2 Mean Ox Delivery Rate 10/07 2111 97.8 98 28 114/63 10/07 1999 98 Nasal 2.0L Cannula 10/06 1600 96 Nasal 2.0L Cannula 10/06 1600 98.0 103 20 116/81 96 Nasal 2.0L Cannula 10/06 1422 98.0 103 20 118/64 100 Nasal Cannula 10/06 0950 95 Nasal 2.0L Cannula 10/06 0924 94 Nasal 2.0L Cannula 10/06 0909 Nasal 2.0L Cannula 10/06 0849 99.6 128 24 112/70 93 10/06 0705 100.8 10/06 0701 100.8 10/06 0630 145 26 96 Nasal 2.0L Cannula 10/06 0609 101.1 10/06 0538 101.1 120 24 128/62 95 Nasal 2.0L Cannula 10/06 0245 97 Nasal 2.0L Cannula 10/06 0242 98.2 98 20 142/62 97 Nasal 2.0L Cannula 10/06 0217 98.5 86 18 127/60 98 Nasal 2.0L Cannula 10/06 0047 98.6 84 18 123/60 98 Nasal 2.0L Cannula 10/05 2230 98.9 90 18 138/84 99 Room Air Intake & Output 10/06 1600 10/06 0800 10/06 0000 Intake Total 166 138 5871 Output Total 350 100 Balance 676 019 3074 Intake, IV 475 3000 Intake, Oral 300 480 Number 0 Bowel Movements Output, Urine 350 100 Patient 101.605 kg 97.069 kg Weight Weight Bed scale Reported by Patient Measurement Method Physical Exam General Appearance: Alert, Oriented X3, Cooperative Skin: No Rashes, No Breakdown Skin Temp/Moisture Exam: Warm/Dry Sepsis Skin Exam (color): Normal for Ethnicity HEENT: Atraumatic, PERRLA, EOMI Neck: Supple Cardiovascular: Normal S1, Normal S2 Lungs: Normal Air Movement Abdomen: Normal Bowel Sounds, mild distention Neurological: Strength at 5/5 X4 Ext, Normal Tone, Sensation Intact Extremities: No Clubbing, No Cyanosis, No Edema Vascular: Normal Pulses Current Medications: Current Medications Sig/Nora Start time Last Medication Dose Route Stop Time Status Admin Acetaminophen 1,000 MG .STK-MED ONE 10/06 1539 DC IV 10/06 1540 Acetaminophen 1,000 MG ONCE ONE 10/06 06 DC 10/06 N/A 1 UNIT IV 10/06 0614 0609 Acetaminophen 650 MG Q8P PRN 10/06 0345 AC PO Albuterol Sulfate 3 ML Q4P PRN 10/06 0915 DC 10/06 INH 0946 Aspirin 325 MG DAILY 10/07 09 AC PO Aspirin 325 MG ONCE ONE 10/06 1530 DC 10/06 PO 10/06 1531 1649 Atorvastatin Calcium 20 MG 1700 10/06 1700 AC 10/06 PO 1745 Azithromycin 500 MG 10/06 CAN Sodium Chloride 250 ML IV Azithromycin 500 MG DAILY 10/06 0900 DC Sodium Chloride 250 ML IV Azithromycin 500 MG ONCE ONE 10/06 0045 DC 10/06 Sodium Chloride 250 ML IV 10/06 0144 0110 Ceftriaxone Sodium 1,000 MG 10/06 CAN IV Ceftriaxone Sodium 1,000 MG DAILY 10/06 09 DC IV Ceftriaxone Sodium 0 .STK-MED ONE 10/06 0006 DC .ROUTE Ceftriaxone Sodium 1,000 MG ONCE ONE 10/05 2315 DC 10/06 IV 10/05 2316 0004 Clopidogrel Bisulfate 300 MG ONCE ONE 10/06 1545 DC 10/06 PO 10/06 1546 1650 Doxycycline Hyclate 100 MG BID 10/06 2100 AC 10/06 PO 2111 Heparin Sodium 5,000 UNIT ONCE ONE 10/06 1545 DC 10/06 (Porcine) IV 10/06 1546 1650 Heparin Sodium 25,000 UNIT Q24H 10/06 1545 AC 10/06 (Porcine) IV 1736 Sodium Chloride 500 ML Heparin Sodium 5,000 UNIT Q8 10/06 0600 DC 10/06 (Porcine) SC 1421 Insulin Aspart 0 TIDAC 10/06 0800 AC 10/06 SC 1745 Ipratropium [place] 2.5 ML Q8 PRN 10/06 2130 AC INH Lisinopril 10 MG DAILY 10/06 0900 DC PO Metoprolol Tartrate 12.5 MG BID 10/06 1845 AC 10/06 PO 2112 Sodium Chloride 1,000 ML Q13H 10/06 0315 AC 10/06 IV 10/07 0014 1421 Tramadol HCl 50 MG Q8P PRN 10/06 0345 AC PO Last 24 Hrs of Lab/Ronny Results Last 24 Hrs of Labs/Mics: Laboratory Tests 10/06/17 2005: Troponin I 114.00 *H 10/06/17 2005: Lactic Acid 2.4 H, A.phagocytophil DNA PCR Pending 10/06/17 1630: Troponin I 109.00 *H 10/06/17 1630: Lactic Acid 3.6 H 10/06/17 1245: Troponin I 46.80 *H 10/06/17 1245: Lactic Acid 3.3 H 10/06/17 0940: Lactic Acid 2.5 H, D-Dimer High Sensitivty 1644 H 10/06/17 0655: Lactic Acid 3.4 H, Troponin I 0.81 *H 10/06/17 0655: Anion Gap 17 H, Estimated GFR 50 L, BUN/Creatinine Ratio 15.0, Total Bilirubin 0.5, Direct Bilirubin 0.3, AST 96 H, ALT 94 H, Alkaline Phosphatase 48, C- Reactive Prot, Quant 7.5 H, Total Protein 7.2, Albumin 3.4 L, TSH 2.500, CBC w Diff MAN DIFF ORDERED, RBC 4.05 L, MCV 95.5 H, MCH 32.4 H, MCHC 33.9, RDW 13.6, MPV 9.0, Gran % 55.4, Lymphocytes % 41.2, Monocytes % 3.3, Eosinophils % 0 , Basophils % 0.1, Absolute Granulocytes 6.4, Segmented Neutrophils 44, Band Neutrophils 11 H, Absolute Lymphocytes 4.8 H, Lymphocytes 39, Monocytes 6, Absolute Monocytes 0.4, Absolute Eosinophils 0, Absolute Basophils 0, Platelet Estimate VERIFIED BY SMEAR, Normocytic RBCs VERIFIED, Normochromic RBCs VERIFIED , ESR W[place]gren 13 H, TIFFANY Titer Pending, Anti-Nuclear Antibody Pending, Lyme Disease Antibody Pending 10/05/172329: Urinalysis HEAVY H, Urine Color YEL, Urine Clarity HAZY H, Urine pH 6.0, Ur Specific [place] >= 1.030, Urine Protein 30 H, Urine Ketones TRACE H, Urine Nitrite NEG, Urine Bilirubin NEG, Urine Urobilinogen 0.2, Ur Leukocyte Esterase NEG, Ur Microscopic SEDIMENT EXAMINED, Urine RBC 3-5, Urine WBC 1-3 H, Ur Epithelial Cells RARE, Urine Bacteria FEW H, Hyaline Casts 1-3 H, Urine Mucus MANY H, Urine Hemoglobin NEG, Urine Glucose 100 H 10/05/172329: Ur Random Creatinine 331.4, Ur Random Sodium 51, Ur Random Potassium 111.9, Fraction Sodium Excret 0.1 Microbiology 10/06 1550 UPPER RESP: Surveillance Culture - RECD 10/06 1524 GI: Surveillance Culture - COLB 10/07 251 LOWER RESP: Respiratory Culture - COLB 10/07 251 LOWER RESP: Gram Stain - COLB 10/05 2329 URINE ROUT: Legionella Antigen - COMP 10/05 2329 URINE ROUT: Streptococcus pneumoniae Antigen (M - COMP 10/05 2329 URINE ROUT: Urine Culture - RECD 10/05 2324 BLOOD: Blood Culture - RES Assessment/Plan Assessment: Patient is a 72yo M w/ PMH of diabetes on metformin/glipizide, HLD on crestor, HTN on lisinopril, presented to ER w/ fever/weakness x 1day. Patient stated that he had spent all day in bed with feeling of warm, also c/o increased urination w / burning, and muscle aches over body starting this afternoon. Patient endorsed some productive cough and chest congestion for the last two days however no fever/chills/body ache/sick contacts/chest pain/SOB/palpitation until suddenly this afternoon that he was trying to get out of the bed but he was too weak to do so. He denied fall to ground/seizuring activity/LOC, but endorsed onset of fever/chills/body ache ever since then. VS at admission: Febrile to 101.5, HR 118, BP 145/66mmHg, on 2L NC. Laboratory data revealed a white blood cell count of 14,000, BUN/creatinine 19 and 1.3, AST ALT 88 and 92, troponin 0.02, d-dimer 1644. Urinalysis 3-5 RBC/1-3 WBCs. Chest x-ray revealed a right infrahilar opacity. On 10/06/17 morning he was noted to be tachypneic and tachycardic with a complaint of dyspnea. A repeat troponin was elevated to 0.81, subsequently moved to Telemetry (admitted to [facility] initially) and, with his troponin further elevated to 46.8 this afternoon, to the ICU. A CTA was negative for pulmonary embolism with no evidence of consolidation but did reveal extensive emphysema. Transferred to ICU once Troponin elevated from 0.02 --> 0.81 --> 46.8. EKG didnot show any acute ischemic changes initially. EKG shows NSR with ST T wave chages in the anterior leads. Trop continued to trend upward without any symptoms. Problem list 1. Significant elevation of troponin in the setting of acute illness in a diabetic patient 2. Possible viral illness - ? tick borne 3. Lactic acidosis with elevated Cr 4. HTN 5. HLD 6. DM 7. Lung nodule Plan Elevated troponin with possible viral myocarditis vs Acute coronary syndrome Patient had history of diabetes, hypertension, hyperlipidemia on medical management. He had multiple risk factors, completely asymptomatic without any chest discomfort. Since admission patient remained tachypneic and tachycardic and subsequently his troponin was elevated. As troponins persistently elevated with subsequent EKG changes and CTA ruled out PE, it was considered that acute coronary syndrome or possible myocarditis is being reason for his symptoms. No eosinophilia. There is no obvious clear source of infection at this point. Stat echo was ordered (not done). Patient was given 325 mg of aspirin and begun on atorvastatin 20mg, metoprolol 12.5 twice a day, IV heparin. CRP, TIFFANY, ESR, tick panel requested. His oxygen requirement remained stable since admission at 2 L. A decision was made to transfer the patient to obtain stat catheterization. Trop prior to transfer was 114. He was hemodynamically stable and completely lucid. Possible tickborne illness Patient had a history of tick bite 2 weeks ago and had symptoms of weakness and lethargy along with thrombocytopenia. Although he was started initially on IV ceftriaxone, azithromycin for concerns of pneumonia, fever discontinued and started on doxycycline 100 mg by mouth every 12 hours. PCR for Anaplasma was sent out. A peripheral smear was requested for intracytoplasmic morules. Tick panel requested. ESR, TIFFANY, CRP were requested. Possibility of viral myocarditis was raised. Mild Lactic acidosis Perisistent lactic acidosis despite aggressive hydration, so far received 2L of NS. currently on NS @ 125ml/hr. AG 17. Cr 1.4. Improved with hydration, however discontinued in light of possible decompensation of his cardiac status. Diabetes Mellitus Patient was on glipizide/metformin. We hold for now and continue ISS HTN Was on lisinopril at home DVT prophylaxis IV heparin Code status full code Problem List: 1. Sepsis 2. Weakness 3. Elevated troponin Pain Ratin Pain Location: n/a Pain Goal: Pain 4 or less Pain Plan: tylenol prn Tomorrow's Labs & Rationales: none Consulting Request: Consulting Specialty: Cardiology Consulting Physician: Reason for Consult: elevated troponin
[2017-10-06] MEDS ORDERED: ATORVASTATIN CA20 M1 PO (21:51)
[2017-10-06] MEDS ORDERED: DOXYCYCLINE HY100 M2 PO (21:51)
[2017-10-06] MEDS ORDERED: METOPROLOL TART25 M1 PO ×2 (21:51→22:04)
[2017-10-06] MEDS ORDERED: HEPARIN IV (21:57)
--- NOTE | 2017-10-06 21:58 | Patient Discharge Instructions ---
Discharge Instructions General Discharge Information You were seen/treated for: acute viral illness You had these procedures: none Special Instructions: please follow up with at [facility] Diet Recommended Diet: Heart Healthy Activity Activity Self Limited: Yes Acute Coronary Syndrome Inclusion Criteria At DC or during hospital stay patient has or had the following: ACS DIAGNOSIS Yes Discharge Core Measures Meds if any: Prescribed or Continued at Discharge Aspirin Yes Beta-Jenna Yes Statin Yes Meds if any: NOT Prescribed or Continued at Discharge Congestive Heart Failure Inclusion Criteria At DC or during hospital stay patient has or had the following: CHF DIAGNOSIS No Discharge Core Measures Meds if any: Prescribed or Continued at Discharge Meds if any: NOT Prescribed or Continued at Discharge Cerebrovascular accident Inclusion Criteria At DC or during hospital stay patient has or had the following: CVA/TIA Diagnosis No Discharge Core Measures Meds if any: Prescribed or Continued at Discharge Meds if any: NOT Prescribed or Continued at Discharge Venous thromboembolism Inclusion Criteria VTE Diagnosis No VTE Type NONE VTE Confirmed by (Test) NONE Discharge Core Measures - Per Current guidelines, there needs to be overlap - treatment for the first 5 days of Warfarin therapy. - If discharged on Warfarin prior to 5 days of - overlap therapy, the patient will need to be - assessed for post discharge needs including - *Post discharge parental anticoagulation - *Warfarin and/or parental anticoagulation education - *Follow up date to check INR post discharge At least 5 days overlap therapy as Inpatient No Meds if any: Prescribed or Continued at Discharge Note: Overlap Therapy is Warfarin and Anticoagulant Meds if any: NOT Prescribed or Continued at Discharge
[2017-10-06] MEDS ORDERED: NOVOLOG100 UNIT/2 SC (22:05)
[2017-10-06] MEDS ORDERED: ASPIRIN EC81 M1 PO (22:12)
== END 2017-10-06 22:30 | disposition short-term general hospital (02) | DRG 871 ==
LOC: ERH 20:07 → ERHI 10-06 00:39 → 1NO 10-06 00:39 → ENRESERV 10-06 02:06 → 1NO 10-06 02:41 → 2NB 10-06 02:41 → 1NO 10-06 08:12 → CRI 10-06 15:45
PROVIDERS: Pediatrics
DX: A41.9 Sepsis, unspecified organism (principal); I21.A1 Myocardial infarction type 2; J96.01 Acute respiratory failure with hypoxia; N17.9 Acute kidney failure, unspecified; E87.2 Acidosis; E11.9 Type 2 diabetes mellitus without complications; I10 Essential (primary) hypertension; Z79.4 Long term (current) use of insulin; E86.0 Dehydration; E78.5 Hyperlipidemia, unspecified; I44.7 Left bundle-branch block, unspecified; B99.8 Other infectious disease; R91.1 Solitary pulmonary nodule; Z79.84 Long term (current) use of oral hypoglycemic drugs; Z87.891 Personal history of nicotine dependence
CPT/HCPCS: 84133; 84300; 86618; 87798; CCU; 36415; 36592; 71045; 81001; 82436; 82570; 87040; 87070; 87086; 87449; 87450; 93005; 93010; 96360; 96365; 96375; 99291; J0131; J0456; J0696; J1644; J1885; J7040